=== PATIENT | female | born 1945 | race Caucasian/White ===

== ENCOUNTER 2019-01-09 14:57 | Inpatient (IN) | payer MEDICARE ==
[2019-01-09 15:58] LABS: ADD MAN DIFF? NO
[2019-01-09 16:00] LABS: BASOPHILS % 0.2 % (0.0-2.0); EOSINOPHILS # 0.1 10^3/ul (0.0-0.5); EOSINOPHILS % 0.6 % (0.0-7.0); HEMATOCRIT 33.6 % (37.0-47.0); HEMOGLOBIN 10.5 g/dl (12.0-16.0); LYMPHOCYTES # 2.1 10^3/ul (0.8-2.9); LYMPHOCYTES % 22.9 % (15.0-51.0); MEAN CORPUSCULAR HEMOGLOBIN 28.7 pg (29.0-33.0); MEAN CORPUSCULAR HGB CONC 31.3 g/dl (32.0-37.0); MEAN CORPUSCULAR VOLUME 91.8 fl (82.0-101.0); MEAN PLATELET VOLUME 10.1 fl (7.4-10.4); MONOCYTE # 1.1 10^3/ul (0.3-0.9); MONOCYTES % 11.2 % (0.0-11.0); NEUTROPHILS % 63.6 % (39.0-77.0); PLATELET COUNT 233 10^3/UL (140-415); RED BLOOD COUNT 3.66 10^6/ul (4.20-5.40); RED CELL DISTRIBUTION WIDTH 16.6 % (11.5-14.5)
[2019-01-09 16:00] LABS: WHITE BLOOD COUNT 9.4 10^3/ul (4.8-10.8)
[2019-01-09 16:21] LABS: ALANINE AMINOTRANSFERASE 28 IU/L (13-69); ALBUMIN 3.3 g/dl (3.3-4.9); ALBUMIN/GLOBULIN RATIO 1.43; ALKALINE PHOSPHATASE 73 IU/L (42-121); ANION GAP 7 (5-13); ASPARTATE AMINO TRANSFERASE 19 IU/L (15-46); BILIRUBIN,INDIRECT 0.4 mg/dl (0-1.1); BILIRUBIN,TOTAL 0.4 mg/dl (0.2-1.3); BLOOD UREA NITROGEN 28 mg/dl (7-20); CALCIUM 8.9 mg/dl (8.4-10.2); CARBON DIOXIDE 30 mmol/L (21-31); CHLORIDE 100 mmol/L (97-110); CREATININE 1.04 mg/dl (0.44-1.00); GLUCOSE 88 mg/dl (70-220); LIPASE 104 U/L (23-300); POTASSIUM 3.9 mmol/L (3.5-5.1); SODIUM 137 mmol/L (135-144); TOTAL PROTEIN 5.6 g/dl (6.1-8.1)
[2019-01-09] MEDS: ASPIRIN 81 MG TAB PO (18:27)
[2019-01-09] MEDS ORDERED: NITROGLYCERIN (SL) 0.4 MG TAB SL (19:00)
[2019-01-09] MEDS ORDERED: LABETALOL HCL 20MG INJ IV (19:00)
[2019-01-09] MEDS ORDERED: DOCUSATE SODIUM 100 MG CAP PO (19:00)
[2019-01-09] MEDS ORDERED: ACETAMINOPHEN 325 MG TAB PO (19:00)
[2019-01-09] MEDS ORDERED: ALBUTEROL/IPRATROPIUM (NEB) 3 ML AMP HHN (19:00)
[2019-01-09] MEDS ORDERED: NACL 0.9% 3 ML SYG IV (19:00)
[2019-01-09] MEDS ORDERED: ONDANSETRON 4 MG INJ IV (19:00)
[2019-01-09] MEDS ORDERED: morphine 2 MG INJ IV (19:00)
[2019-01-09] MEDS ORDERED: ATORVASTATIN 40 MG TAB PO (21:00)
[2019-01-09] MEDS: SOD CHLORIDE 0.9% 1,000 ML IV (21:13)
[2019-01-09] MEDS: ATORVASTATIN 40 MG TAB PO (21:14)
[2019-01-09] MEDS: PANTOPRAZOLE (EC) 40 MG TAB PO (21:14)
[2019-01-09 23:14] LABS: TROPONIN-I 0.185 ng/ml (0.000-0.120)
[2019-01-09] MEDS: VENLAFAXINE (XR) 75 MG CAP PO (23:31)
[2019-01-10 01:50] LABS: TROPONIN-I 0.168 ng/ml (0.000-0.120)
[2019-01-10] MEDS: PANTOPRAZOLE (EC) 40 MG TAB PO (05:55)
[2019-01-10] MEDS: LEVOTHYROXINE 88 MCG TAB PO (05:55)
[2019-01-10] MEDS ORDERED: PENDING SANTYL ORDER FOR WOUND CARE XX (07:30)
[2019-01-10 07:38] LABS: ADD MAN DIFF? NO
[2019-01-10 07:49] LABS: WHITE BLOOD COUNT 8.3 10^3/ul (4.8-10.8)
[2019-01-10 07:49] LABS: BASOPHILS % 0.5 % (0.0-2.0); EOSINOPHILS # 0.1 10^3/ul (0.0-0.5); EOSINOPHILS % 1.5 % (0.0-7.0); HEMATOCRIT 38.1 % (37.0-47.0); HEMOGLOBIN 11.5 g/dl (12.0-16.0); LYMPHOCYTES # 2.4 10^3/ul (0.8-2.9); LYMPHOCYTES % 29.3 % (15.0-51.0); MEAN CORPUSCULAR HGB CONC 30.2 g/dl (32.0-37.0); MEAN CORPUSCULAR VOLUME 92.9 fl (82.0-101.0); MEAN PLATELET VOLUME 10.3 fl (7.4-10.4); MONOCYTE # 0.7 10^3/ul (0.3-0.9); MONOCYTES % 8.7 % (0.0-11.0); NEUTROPHIL # 4.8 10^3/ul (1.6-7.5); NEUTROPHILS % 58.2 % (39.0-77.0); PLATELET COUNT 229 10^3/UL (140-415); RED CELL DISTRIBUTION WIDTH 16.7 % (11.5-14.5)
[2019-01-10] MEDS: DIPHENHYDRAMINE 50 MG CAP PO (08:00)
[2019-01-10] MEDS: DIAZEPAM 5 MG TAB PO (08:00)
[2019-01-10 08:25] LABS: ALANINE AMINOTRANSFERASE 23 IU/L (13-69); ALBUMIN 3.5 g/dl (3.3-4.9); ALBUMIN/GLOBULIN RATIO 1.75; ALKALINE PHOSPHATASE 68 IU/L (42-121); ANION GAP 8 (5-13); ASPARTATE AMINO TRANSFERASE 20 IU/L (15-46); BILIRUBIN,INDIRECT 0.5 mg/dl (0-1.1); BILIRUBIN,TOTAL 0.5 mg/dl (0.2-1.3); BLOOD UREA NITROGEN 24 mg/dl (7-20); CALCIUM 8.9 mg/dl (8.4-10.2); CARBON DIOXIDE 30 mmol/L (21-31); CHLORIDE 102 mmol/L (97-110); CHOL/HDL RATIO 3.9 RATIO; CHOLESTEROL 211 mg/dl (100-200); CREATININE 0.85 mg/dl (0.44-1.00); GLUCOSE 76 mg/dl (70-220); HDL CHOLESTEROL 53 mg/dl (33-92); LDL CHOLESTEROL,CALCULATED 99 mg/dl; MAGNESIUM 2.1 mg/dl (1.7-2.5); POTASSIUM 4.6 mmol/L (3.5-5.1); SODIUM 140 mmol/L (135-144); TOTAL PROTEIN 5.5 g/dl (6.1-8.1); TRIGLYCERIDES 293 mg/dl (0-149)
[2019-01-10 08:38] LABS: HEMOGLOBIN A1C 5.5 % (0-5.9)
[2019-01-10] MEDS: ASPIRIN (EC) 81 MG TAB PO ×2 (09:00→10:40)
[2019-01-10] MEDS: METOPROLOL 25 MG TAB PO ×3 (09:00→21:23)
[2019-01-10] MEDS: VENLAFAXINE (XR) 75 MG CAP PO ×3 (09:00→21:23)
[2019-01-10] MEDS: SOD CHLORIDE 0.9% 1,000 ML IV (18:44)
[2019-01-10] MEDS: ATORVASTATIN 40 MG TAB PO (21:23)
[2019-01-11] MEDS: LEVOTHYROXINE 88 MCG TAB PO (06:05)
[2019-01-11] MEDS: PANTOPRAZOLE (EC) 40 MG TAB PO (06:05)
[2019-01-11 06:58] LABS: WHITE BLOOD COUNT 8.9 10^3/ul (4.8-10.8)
[2019-01-11 06:58] LABS: ADD MAN DIFF? NO; BASOPHILS % 0.3 % (0.0-2.0); EOSINOPHILS # 0.2 10^3/ul (0.0-0.5); EOSINOPHILS % 1.9 % (0.0-7.0); HEMATOCRIT 35.5 % (37.0-47.0); HEMOGLOBIN 10.9 g/dl (12.0-16.0); LYMPHOCYTES # 2.1 10^3/ul (0.8-2.9); LYMPHOCYTES % 23.9 % (15.0-51.0); MEAN CORPUSCULAR HEMOGLOBIN 28.2 pg (29.0-33.0); MEAN CORPUSCULAR HGB CONC 30.7 g/dl (32.0-37.0); MEAN PLATELET VOLUME 10.4 fl (7.4-10.4); MONOCYTE # 0.7 10^3/ul (0.3-0.9); MONOCYTES % 8.3 % (0.0-11.0); NEUTROPHIL # 5.6 10^3/ul (1.6-7.5); NEUTROPHILS % 63.5 % (39.0-77.0); PLATELET COUNT 221 10^3/UL (140-415); RED BLOOD COUNT 3.86 10^6/ul (4.20-5.40); RED CELL DISTRIBUTION WIDTH 16.3 % (11.5-14.5)
[2019-01-11 07:16] LABS: ANION GAP 5 (5-13); BLOOD UREA NITROGEN 20 mg/dl (7-20); CALCIUM 8.9 mg/dl (8.4-10.2); CARBON DIOXIDE 28 mmol/L (21-31); CHLORIDE 106 mmol/L (97-110); CREATININE 0.77 mg/dl (0.44-1.00); GLUCOSE 92 mg/dl (70-220); MAGNESIUM 2.2 mg/dl (1.7-2.5); POTASSIUM 4.1 mmol/L (3.5-5.1); SODIUM 139 mmol/L (135-144)
[2019-01-11 07:18] LABS: INR 0.91; PROTIME 12.4 Sec (11.9-14.9)
[2019-01-11 07:19] LABS: PARTIAL THROMBOPLASTIN TIME 26.4 Sec (23.0-35.0)
[2019-01-11 07:22] LABS: CHOLESTEROL 197 mg/dl (100-200)
[2019-01-11 07:52] LABS: FREE T4 (FREE THYROXINE) 1.03 ng/dl (0.78-2.44)
[2019-01-11] MEDS: VENLAFAXINE (XR) 75 MG CAP PO ×2 (08:40→20:38)
[2019-01-11] MEDS: ASPIRIN (EC) 81 MG TAB PO (08:40)
[2019-01-11] MEDS: METOPROLOL 25 MG TAB PO ×2 (08:41→20:38)
[2019-01-11] MEDS: DIPHENHYDRAMINE 50 MG CAP PO (09:49)
[2019-01-11] MEDS: DIAZEPAM 5 MG TAB PO (09:49)
[2019-01-11] MEDS ORDERED: IODIXANOL LOCM 100 ML BTL (10:46)
[2019-01-11] MEDS ORDERED: LIDOCAINE 1% (MDV) 20 ML INJ (10:46)
[2019-01-11] MEDS ORDERED: HEPARIN 1000 UNITS/ML 10 ML INJ (10:46)
[2019-01-11] MEDS ORDERED: VERAPAMIL 5 MG INJ (10:47)
[2019-01-11] MEDS ORDERED: NITROGLYCERIN (IC) 100 MCG/ML INJ (10:47)
[2019-01-11] MEDS ORDERED: MIDAZOLAM 1 MG/ML 2 ML INJ (10:51)
[2019-01-11] MEDS ORDERED: FENTAnyl 50 MCG/ML VIAL (11:09)
[2019-01-11] MEDS ORDERED: ACETAMINOPHEN 325 MG TAB PO (11:30)
[2019-01-11] MEDS ORDERED: morphine 2 MG INJ IV (11:30)
[2019-01-11] MEDS ORDERED: AL HYDROX/MG HYDROX/SIMETH 30 ML CUP PO (11:30)
[2019-01-11] MEDS ORDERED: ONDANSETRON 4 MG INJ IV (11:30)
[2019-01-11] MEDS: SOD CHLORIDE 0.9% 1,000 ML IV (12:30)
[2019-01-11] MEDS: ATORVASTATIN 40 MG TAB PO (20:38)
[2019-01-12] MEDS: LEVOTHYROXINE 88 MCG TAB PO (06:23)
[2019-01-12] MEDS: PANTOPRAZOLE (EC) 40 MG TAB PO (06:23)
[2019-01-12 06:49] LABS: ADD MAN DIFF? NO
[2019-01-12 06:53] LABS: WHITE BLOOD COUNT 8.7 10^3/ul (4.8-10.8)
[2019-01-12 06:53] LABS: BASOPHIL # 0.1 10^3/ul (0.0-0.1); BASOPHILS % 0.6 % (0.0-2.0); EOSINOPHILS # 0.2 10^3/ul (0.0-0.5); EOSINOPHILS % 2.7 % (0.0-7.0); HEMATOCRIT 34.4 % (37.0-47.0); HEMOGLOBIN 10.5 g/dl (12.0-16.0); LYMPHOCYTES # 1.9 10^3/ul (0.8-2.9); LYMPHOCYTES % 21.5 % (15.0-51.0); MEAN CORPUSCULAR HEMOGLOBIN 28.2 pg (29.0-33.0); MEAN CORPUSCULAR HGB CONC 30.5 g/dl (32.0-37.0); MEAN CORPUSCULAR VOLUME 92.5 fl (82.0-101.0); MEAN PLATELET VOLUME 10.2 fl (7.4-10.4); MONOCYTE # 0.8 10^3/ul (0.3-0.9); MONOCYTES % 8.6 % (0.0-11.0); NEUTROPHIL # 5.7 10^3/ul (1.6-7.5); PLATELET COUNT 209 10^3/UL (140-415); RED BLOOD COUNT 3.72 10^6/ul (4.20-5.40); RED CELL DISTRIBUTION WIDTH 16.3 % (11.5-14.5)
[2019-01-12 07:14] LABS: ANION GAP 4 (5-13); BLOOD UREA NITROGEN 18 mg/dl (7-20); CALCIUM 8.8 mg/dl (8.4-10.2); CARBON DIOXIDE 31 mmol/L (21-31); CHLORIDE 105 mmol/L (97-110); CREATININE 0.86 mg/dl (0.44-1.00); GLUCOSE 94 mg/dl (70-220); MAGNESIUM 2.2 mg/dl (1.7-2.5); POTASSIUM 4.2 mmol/L (3.5-5.1); SODIUM 140 mmol/L (135-144)
[2019-01-12] MEDS: ASPIRIN (EC) 81 MG TAB PO (08:14)
[2019-01-12] MEDS: CLOPIDOGREL 75 MG TAB PO (08:14)
[2019-01-12] MEDS: METOPROLOL 25 MG TAB PO ×2 (08:14→21:01)
[2019-01-12] MEDS: VENLAFAXINE (XR) 75 MG CAP PO ×2 (08:17→21:00)
[2019-01-12] MEDS: LOSARTAN 25 MG TAB PO (12:18)
[2019-01-12] MEDS: ATORVASTATIN 40 MG TAB PO (21:00)
[2019-01-12] MEDS: HYDROCODONE/APAP (5/325) TAB PO (22:18)
[2019-01-13] MEDS: LEVOTHYROXINE 88 MCG TAB PO (06:09)
[2019-01-13] MEDS: PANTOPRAZOLE (EC) 40 MG TAB PO (06:09)
[2019-01-13] MEDS: CLOPIDOGREL 75 MG TAB PO (09:16)
[2019-01-13] MEDS: ASPIRIN (EC) 81 MG TAB PO (09:16)
[2019-01-13] MEDS: VENLAFAXINE (XR) 75 MG CAP PO (09:16)
[2019-01-13] MEDS: METOPROLOL 25 MG TAB PO (09:17)
[2019-01-13] MEDS: LOSARTAN 25 MG TAB PO (09:18)
== END 2019-01-13 16:15 | DRG 282 ==
LOC: E/R 14:57 → TEL 17:40
PROC: 4A023N7 Measurement of Cardiac Sampling and Pressure, Left Heart, Percutaneous Approach (ICD-10-PCS; principal; 2019-01-11 10:31)
PROC: B2011ZZ Plain Radiography of Multiple Coronary Arteries using Low Osmolar Contrast (ICD-10-PCS; 2019-01-11 10:31)
PROC: B2051ZZ Plain Radiography of Left Heart using Low Osmolar Contrast (ICD-10-PCS; 2019-01-11 10:31)
DX: I21.4 Non-ST elevation (NSTEMI) myocardial infarction (principal); I25.82 Chronic total occlusion of coronary artery; I25.10 Atherosclerotic heart disease of native coronary artery without angina pectoris; Z95.5 Presence of coronary angioplasty implant and graft; D64.9 Anemia, unspecified; E03.9 Hypothyroidism, unspecified; J44.9 Chronic obstructive pulmonary disease, unspecified; I10 Essential (primary) hypertension; Z72.0 Tobacco use; N28.9 Disorder of kidney and ureter, unspecified; E78.5 Hyperlipidemia, unspecified; F03.90 Unspecified dementia, unspecified severity, without behavioral disturbance, psychotic disturbance, mood disturbance, and anxiety
CPT/HCPCS: 36415; 71045; 80048; 80053; 80061; 82465; 83036; 83690; 83735; 84100; 84439; 84443; 84484; 85025; 85610; 85730; 87081; 93005; 93306; 93458; 99285-25

== ENCOUNTER 2019-02-18 15:28 | Inpatient (IN) | payer MEDICARE ==
[2019-02-18 15:42] LABS: ADD MAN DIFF? NO
[2019-02-18 15:47] LABS: WHITE BLOOD COUNT 12.8 10^3/ul (4.8-10.8)
[2019-02-18 15:47] LABS: BASOPHIL # 0.1 10^3/ul (0.0-0.1); BASOPHILS % 0.5 % (0.0-2.0); EOSINOPHILS # 0.1 10^3/ul (0.0-0.5); EOSINOPHILS % 0.5 % (0.0-7.0); HEMATOCRIT 31.8 % (37.0-47.0); HEMOGLOBIN 9.6 g/dl (12.0-16.0); LYMPHOCYTES # 1.7 10^3/ul (0.8-2.9); LYMPHOCYTES % 13.4 % (15.0-51.0); MEAN CORPUSCULAR HEMOGLOBIN 25.1 pg (29.0-33.0); MEAN CORPUSCULAR HGB CONC 30.2 g/dl (32.0-37.0); MEAN PLATELET VOLUME 9.8 fl (7.4-10.4); MONOCYTE # 1.1 10^3/ul (0.3-0.9); MONOCYTES % 8.6 % (0.0-11.0); NEUTROPHIL # 9.8 10^3/ul (1.6-7.5); NEUTROPHILS % 76.4 % (39.0-77.0); PLATELET COUNT 329 10^3/UL (140-415); RED BLOOD COUNT 3.83 10^6/ul (4.20-5.40); RED CELL DISTRIBUTION WIDTH 16.3 % (11.5-14.5)
[2019-02-18 16:06] LABS: ANION GAP 9 (5-13); BLOOD UREA NITROGEN 18 mg/dl (7-20); CALCIUM 9.6 mg/dl (8.4-10.2); CARBON DIOXIDE 26 mmol/L (21-31); CHLORIDE 106 mmol/L (97-110); CREATININE 0.87 mg/dl (0.44-1.00); GLUCOSE 124 mg/dl (70-220); SODIUM 141 mmol/L (135-144)
[2019-02-18 16:18] LABS: TROPONIN-I 0.069 ng/ml (0.000-0.120)
[2019-02-18] MEDS: NITROGLYCERIN 2% 1 GM OINT PKT TD (16:37)
[2019-02-18] MEDS: LORAZEPAM 2 MG INJ IV (16:37)
[2019-02-18] MEDS: NITROGLYCERIN (SL) 0.4 MG TAB SL (16:37)
[2019-02-18] MEDS: METOPROLOL 5 MG INJ IV ×2 (16:50→17:28)
[2019-02-18] MEDS ORDERED: NITROGLYCERIN (SL) 0.4 MG TAB SL (17:30)
[2019-02-18] MEDS ORDERED: DOCUSATE SODIUM 100 MG CAP PO ×2 (17:30)
[2019-02-18] MEDS ORDERED: NACL 0.9% 3 ML SYG IV (17:30)
[2019-02-18] MEDS ORDERED: ONDANSETRON 4 MG INJ IV ×2 (17:30)
[2019-02-18] MEDS ORDERED: ACETAMINOPHEN 325 MG TAB PO (17:30)
[2019-02-18] MEDS: morphine 4 MG/ML VIAL IV (18:02)
[2019-02-18] MEDS: SOD CHLORIDE 0.9% 1,000 ML IV (18:02)
[2019-02-18] MEDS: ONDANSETRON 4 MG INJ IV (18:02)
[2019-02-18] MEDS: DILTIAZEM 25 MG INJ IV (18:04)
[2019-02-18] MEDS: DILTIAZEM-D5W 125MG/125ML DRIP 125 ML IV (19:40)
[2019-02-18] MEDS: ATORVASTATIN 40 MG TAB PO (20:49)
[2019-02-18] MEDS: VENLAFAXINE (XR) 75 MG CAP PO (20:49)
[2019-02-18] MEDS ORDERED: METOPROLOL 25 MG TAB PO (21:00)
[2019-02-18] MEDS: METOPROLOL 25 MG TAB PO (21:00)
[2019-02-18] MEDS: morphine 2 MG INJ IV (21:59)
[2019-02-18 22:13] LABS: CREATINE KINASE 56 IU/L (23-200)
[2019-02-18] MEDS: AMIODARONE 150MG/D5W BOLUS 100 ML IV (22:22)
[2019-02-18 22:23] LABS: CK INDEX 5.8; CK-MB 3.26 ng/ml (0.0-2.4)
[2019-02-18 22:26] LABS: TROPONIN-I 0.134 ng/ml (0.000-0.120)
[2019-02-18] MEDS: AMIODARONE 900 MG in DEXTROSE 5% 482 ML IV (22:38)
[2019-02-19] MEDS: AL HYDROX/MG HYDROX/SIMETH 30 ML CUP PO ×5 (01:23→22:32)
[2019-02-19 04:04] LABS: HEMOGLOBIN A1C 5.7 % (0-5.9)
[2019-02-19] MEDS: DILTIAZEM 25 MG INJ IV (04:04)
[2019-02-19] MEDS: LORAZEPAM 0.5 MG TAB PO ×2 (04:09→22:32)
[2019-02-19 04:17] LABS: WHITE BLOOD COUNT 11.2 10^3/ul (4.8-10.8)
[2019-02-19 04:17] LABS: ABNORMAL IP MESSAGE 1; ADD MAN DIFF? NO; BASOPHIL # 0.1 10^3/ul (0.0-0.1); BASOPHILS % 0.7 % (0.0-2.0); EOSINOPHILS # 0.2 10^3/ul (0.0-0.5); EOSINOPHILS % 1.4 % (0.0-7.0); HEMATOCRIT 28.6 % (37.0-47.0); HEMOGLOBIN 8.4 g/dl (12.0-16.0); LYMPHOCYTES # 2.9 10^3/ul (0.8-2.9); LYMPHOCYTES % 25.8 % (15.0-51.0); MEAN CORPUSCULAR HEMOGLOBIN 24.9 pg (29.0-33.0); MEAN CORPUSCULAR HGB CONC 29.4 g/dl (32.0-37.0); MEAN CORPUSCULAR VOLUME 84.9 fl (82.0-101.0); MONOCYTE # 1.5 10^3/ul (0.3-0.9); MONOCYTES % 13.7 % (0.0-11.0); NEUTROPHIL # 6.5 10^3/ul (1.6-7.5); NEUTROPHILS % 57.9 % (39.0-77.0); PLATELET COUNT 295 10^3/UL (140-415); RED BLOOD COUNT 3.37 10^6/ul (4.20-5.40); RED CELL DISTRIBUTION WIDTH 16.6 % (11.5-14.5)
[2019-02-19 04:18] LABS: POSITIVE DIFF @See below
[2019-02-19 04:30] LABS: ANION GAP 8 (5-13); BLOOD UREA NITROGEN 18 mg/dl (7-20); CARBON DIOXIDE 25 mmol/L (21-31); CHLORIDE 108 mmol/L (97-110); CREATINE KINASE 68 IU/L (23-200); CREATININE 0.98 mg/dl (0.44-1.00); GLUCOSE 147 mg/dl (70-220); POTASSIUM 4.6 mmol/L (3.5-5.1); SODIUM 141 mmol/L (135-144)
[2019-02-19 04:31] LABS: CALCIUM 8.9 mg/dl (8.4-10.2); PHOSPHORUS 5.5 mg/dl (2.5-4.9)
[2019-02-19 04:34] LABS: MAGNESIUM 2.1 mg/dl (1.7-2.5)
[2019-02-19 04:41] LABS: CK INDEX 7.7; CK-MB 5.26 ng/ml (0.0-2.4); TROPONIN-I 0.196 ng/ml (0.000-0.120)
[2019-02-19] MEDS: LEVOTHYROXINE 88 MCG TAB PO (06:18)
[2019-02-19] MEDS: ASPIRIN (EC) 81 MG TAB PO (08:36)
[2019-02-19] MEDS: CLOPIDOGREL 75 MG TAB PO (08:36)
[2019-02-19] MEDS: LOSARTAN 25 MG TAB PO (08:36)
[2019-02-19] MEDS: VENLAFAXINE (XR) 75 MG CAP PO ×2 (08:37→20:15)
[2019-02-19] MEDS: METOPROLOL 25 MG TAB PO ×2 (08:37→20:14)
[2019-02-19] MEDS: ENOXAPARIN 40 MG/0.4 ML SYG SC (08:39)
[2019-02-19] MEDS: NICOTINE (14 MG/24 HR) PATCH TRANSDERM (08:41)
[2019-02-19] MEDS: AMIODARONE 900 MG in DEXTROSE 5% 482 ML IV (08:42)
[2019-02-19] MEDS: ALBUTEROL/IPRATROPIUM (NEB) 3 ML AMP NEB ×2 (11:42→20:49)
[2019-02-19 15:52] LABS: TROPONIN-I 0.248 ng/ml (0.000-0.120)
[2019-02-19] MEDS: morphine 2 MG INJ IV ×2 (16:51→23:44)
[2019-02-19] MEDS: ATORVASTATIN 40 MG TAB PO (20:14)
[2019-02-20] MEDS: METHYLPREDNISOLONE 125 MG INJ IV (00:55)
[2019-02-20] MEDS ORDERED: ALBUTEROL/IPRATROPIUM (NEB) 3 ML AMP NEB ×2 (01:00)
[2019-02-20] MEDS ORDERED: METHYLPREDNISOLONE 125 MG INJ IV (01:00)
[2019-02-20] MEDS: ALBUTEROL/IPRATROPIUM (NEB) 3 ML AMP HHN ×4 (01:21→12:48)
[2019-02-20 03:14] LABS: AADO2 Arterial 95.6 mmHg (7.0-24.0); Allen Test ACCEPTAB; Arterial Base Excess -1.3 mmol/L (-3.0-3); Arterial Blood Gas Oxygen Sat 92.3 mmHG (95.0-100.0); Arterial COHb 0 % (0.0-3.0); Arterial Fraction of Oxyhgb 91.9 % (93.0-99.0); Arterial HCO3 26.1 mmol/L (22.0-26.0); Arterial MetHb 0.4 % (0.0-1.5); Arterial pCO2 57.8 mmhg (35-45); MODE NASAL CANNULA; Site Right Radial
[2019-02-20] MEDS: LORAZEPAM 2 MG INJ IV (04:19)
[2019-02-20] MEDS: LEVOTHYROXINE 88 MCG TAB PO (05:44)
[2019-02-20] MEDS: AL HYDROX/MG HYDROX/SIMETH 30 ML CUP PO ×4 (05:44→22:50)
[2019-02-20 07:19] LABS: ADD MAN DIFF? NO
[2019-02-20 07:21] LABS: WHITE BLOOD COUNT 12.9 10^3/ul (4.8-10.8)
[2019-02-20 07:22] LABS: ABNORMAL IP MESSAGE 1; BASOPHILS % 0.2 % (0.0-2.0); HEMATOCRIT 28.8 % (37.0-47.0); HEMOGLOBIN 8.6 g/dl (12.0-16.0); LYMPHOCYTES # 0.3 10^3/ul (0.8-2.9); LYMPHOCYTES % 2.6 % (15.0-51.0); MEAN CORPUSCULAR HGB CONC 29.9 g/dl (32.0-37.0); MEAN CORPUSCULAR VOLUME 83.7 fl (82.0-101.0); MEAN PLATELET VOLUME 10.5 fl (7.4-10.4); MONOCYTE # 0.3 10^3/ul (0.3-0.9); MONOCYTES % 1.9 % (0.0-11.0); NEUTROPHIL # 12.1 10^3/ul (1.6-7.5); NEUTROPHILS % 93.7 % (39.0-77.0); NUCLEATED RED BLOOD CELLS% 0.2 /100WBC (0.0-0.0); PLATELET COUNT 294 10^3/UL (140-415); RED BLOOD COUNT 3.44 10^6/ul (4.20-5.40); RED CELL DISTRIBUTION WIDTH 16.7 % (11.5-14.5)
[2019-02-20 07:41] LABS: POSITIVE DIFF @See below
[2019-02-20 08:07] LABS: TROPONIN-I 0.163 ng/ml (0.000-0.120)
[2019-02-20 08:09] LABS: AADO2 Arterial 84.8 mmHg (7.0-24.0); Arterial Base Excess -0.1 mmol/L (-3.0-3); Arterial Blood Gas Oxygen Sat 87.1 mmHG (95.0-100.0); Arterial COHb 0.6 % (0.0-3.0); Arterial Fraction of Oxyhgb 86.2 % (93.0-99.0); Arterial HCO3 27.2 mmol/L (22.0-26.0); Arterial MetHb 0.4 % (0.0-1.5); Arterial pCO2 58.8 mmhg (35-45); Blood Gas IEPAP 15/5; Blood Gas PS 10; MODE MASK - BIPAP; Site Right Brachial
[2019-02-20] MEDS ORDERED: ALBUTEROL/IPRATROPIUM (NEB) 3 ML AMP HHN (09:00)
[2019-02-20] MEDS: NICOTINE (14 MG/24 HR) PATCH TRANSDERM ×2 (09:00→12:11)
[2019-02-20] MEDS: LOSARTAN 25 MG TAB PO (09:19)
[2019-02-20] MEDS: CLOPIDOGREL 75 MG TAB PO (09:19)
[2019-02-20] MEDS: METOPROLOL 25 MG TAB PO (09:19)
[2019-02-20] MEDS: ASPIRIN (EC) 81 MG TAB PO (09:19)
[2019-02-20] MEDS: VENLAFAXINE (XR) 75 MG CAP PO ×2 (09:19→20:28)
[2019-02-20] MEDS: ENOXAPARIN 40 MG/0.4 ML SYG SC (09:26)
[2019-02-20] MEDS: FUROSEMIDE 40 MG INJ IV (11:26)
[2019-02-20] MEDS: LEVALBUTEROL (NEB) 0.63 MG/3 ML AMP HHN (11:35)
[2019-02-20] MEDS: BUDESONIDE (NEB) 0.5MG/2ML AMP HHN ×2 (11:36→19:51)
[2019-02-20] MEDS: HYDROCODONE/APAP (5/325) TAB PO (20:09)
[2019-02-20] MEDS: ATORVASTATIN 40 MG TAB PO (20:27)
[2019-02-20] MEDS: AMIODARONE 200 MG TAB PO (20:28)
[2019-02-20] MEDS: METOPROLOL 50 MG TAB PO (20:28)
[2019-02-20] MEDS: LORAZEPAM 0.5 MG TAB PO (22:50)
[2019-02-21] MEDS: LEVOTHYROXINE 88 MCG TAB PO (05:35)
[2019-02-21] MEDS: AL HYDROX/MG HYDROX/SIMETH 30 ML CUP PO ×5 (05:35→22:52)
[2019-02-21] MEDS: BUDESONIDE (NEB) 0.5MG/2ML AMP HHN ×2 (08:01→19:15)
[2019-02-21] MEDS: VENLAFAXINE (XR) 75 MG CAP PO ×2 (09:43→20:51)
[2019-02-21] MEDS: NICOTINE (14 MG/24 HR) PATCH TRANSDERM (09:43)
[2019-02-21] MEDS: FUROSEMIDE 40 MG TAB PO ×2 (09:45→20:54)
[2019-02-21] MEDS: CLOPIDOGREL 75 MG TAB PO (09:45)
[2019-02-21] MEDS: METOPROLOL 50 MG TAB PO ×2 (09:45→20:52)
[2019-02-21] MEDS: AMIODARONE 200 MG TAB PO ×2 (09:46→20:51)
[2019-02-21] MEDS: LOSARTAN 25 MG TAB PO (09:46)
[2019-02-21] MEDS: ASPIRIN (EC) 81 MG TAB PO (09:46)
[2019-02-21] MEDS: ENOXAPARIN 40 MG/0.4 ML SYG SC (09:52)
[2019-02-21] MEDS: ALBUTEROL 0.083% (NEB) 2.5 MG/3 ML AMP NEB (14:34)
[2019-02-21] MEDS: LORAZEPAM 0.5 MG TAB PO ×2 (15:09→22:51)
[2019-02-21] MEDS: ATORVASTATIN 40 MG TAB PO (20:50)
[2019-02-22] MEDS: ZOLPIDEM 5 MG TAB PO (02:17)
[2019-02-22] MEDS: ALBUTEROL 0.083% (NEB) 2.5 MG/3 ML AMP NEB (04:45)
[2019-02-22] MEDS: AL HYDROX/MG HYDROX/SIMETH 30 ML CUP PO ×3 (05:30→16:51)
[2019-02-22] MEDS: LEVOTHYROXINE 88 MCG TAB PO (05:40)
[2019-02-22] MEDS: NICOTINE (14 MG/24 HR) PATCH TRANSDERM (08:33)
[2019-02-22] MEDS: VENLAFAXINE (XR) 75 MG CAP PO (08:34)
[2019-02-22] MEDS: METOPROLOL 50 MG TAB PO (08:34)
[2019-02-22] MEDS: LOSARTAN 25 MG TAB PO (08:35)
[2019-02-22] MEDS: FUROSEMIDE 40 MG TAB PO (08:35)
[2019-02-22] MEDS: CLOPIDOGREL 75 MG TAB PO (08:35)
[2019-02-22] MEDS: AMIODARONE 200 MG TAB PO (08:35)
[2019-02-22] MEDS: ASPIRIN (EC) 81 MG TAB PO (08:36)
[2019-02-22] MEDS: ENOXAPARIN 40 MG/0.4 ML SYG SC (08:50)
[2019-02-22] MEDS: BUDESONIDE (NEB) 0.5MG/2ML AMP HHN (09:33)
[2019-02-22] MEDS: ACETAMINOPHEN 325 MG TAB PO (11:39)
[2019-02-22] MEDS: LORAZEPAM 0.5 MG TAB PO (13:13)
== END 2019-02-22 18:56 | DRG 280 ==
LOC: E/R 15:28 → TEL 17:02
PROC: 5A09357 Assistance with Respiratory Ventilation, Less than 24 Consecutive Hours, Continuous Positive Airway Pressure (ICD-10-PCS; principal; 2019-02-20)
DX: R07.9 Chest pain, unspecified (principal); I50.33 Acute on chronic diastolic (congestive) heart failure; I21.A1 Myocardial infarction type 2; J96.01 Acute respiratory failure with hypoxia; J96.02 Acute respiratory failure with hypercapnia; K51.90 Ulcerative colitis, unspecified, without complications; I25.82 Chronic total occlusion of coronary artery; I25.10 Atherosclerotic heart disease of native coronary artery without angina pectoris; I48.0 Paroxysmal atrial fibrillation; E03.9 Hypothyroidism, unspecified; F03.90 Unspecified dementia, unspecified severity, without behavioral disturbance, psychotic disturbance, mood disturbance, and anxiety; F17.200 Nicotine dependence, unspecified, uncomplicated; J44.9 Chronic obstructive pulmonary disease, unspecified; J45.909 Unspecified asthma, uncomplicated; I25.2 Old myocardial infarction; D63.8 Anemia in other chronic diseases classified elsewhere; I10 Essential (primary) hypertension; E78.5 Hyperlipidemia, unspecified; Z72.0 Tobacco use
CPT/HCPCS: 36415; 36600; 71045; 80048; 82550; 82553; 82803; 83036; 83735; 84100; 84484; 85025; 93005; 94640; 94660; 94664; 96374; 97110; 97161; 99285-25